=== PATIENT | female | born 1935 | race Two or more races ===

== ENCOUNTER 2019-03-07 15:57 | Inpatient (IN) | payer OTHER ==
[~2019-03-07] VITALS: Ht 152.4 cm; Wt 41.7 kg
[2019-03-23] MEDS ORDERED: TRAMADOL HCL50 MG PO (12:38)
[2019-03-23] MEDS ORDERED: NORVASC10 MG PO (12:38)
[2019-03-23] MEDS ORDERED: OMEPRAZOLE20 MG PO (12:39)
[2019-03-23] MEDS ORDERED: PROVASTATIN (12:40)
[2019-03-23] MEDS ORDERED: ASPIR 8181 MG PO (12:40)
[2019-03-23] MEDS ORDERED: PNEU16DI2 (12:42)
[2019-03-27] MEDS ORDERED: PRAVASTATIN SOD40 MG PO (08:24)
== END 2019-03-30 12:48 | disposition home or self-care (01) | DRG 331 ==
LOC: O/R 03-27 06:10 → SURH 03-27 06:10
PROVIDERS: ADMIT Surgery
PROC: 0D1N4Z4 Bypass Sigmoid Colon to Cutaneous, Percutaneous Endoscopic Approach (ICD-10-PCS; principal; 2019-03-27 14:30)
DX: C18.7 Malignant neoplasm of sigmoid colon (principal); I10 Essential (primary) hypertension; E87.6 Hypokalemia; E78.00 Pure hypercholesterolemia, unspecified

== ENCOUNTER 2019-03-26 07:41 | Day surgery (SDC) | payer OTHER ==
[~2019-03-26 07:41] MED LIST: ASPIR 8181 MG PO; NORVASC10 MG PO; OMEPRAZOLE20 MG PO; PNEU16DI2; PROVASTATIN; TRAMADOL HCL50 MG PO
[2019-03-27] MEDS ORDERED: PRAVASTATIN SOD40 MG PO (08:24)
== END 2019-03-26 13:47 | disposition home or self-care (01) ==
LOC: AMB-ENDOS 07:41
DX: C19 Malignant neoplasm of rectosigmoid junction (principal)